=== PATIENT | male | born 1980 | race Caucasian/White ===

== ENCOUNTER 2016-11-03 06:17 | Emergency (ER) | payer OTHER ==
[~2016-11-03] VITALS: Ht 193 cm; Wt 107.0 kg
[~2016-11-03 06:17] MED LIST: FLEX5TAB PO; IBUP800 PO; Z.0.NO CURRENT MEDS
[2016-11-03 06:27] VITALS: BP 169/96; PULSE 116; RESP 18; TEMP 98.4; O2SAT 94
[2016-11-03] MEDS ORDERED: muscle relaxer (06:41)
--- NOTE | 2016-11-03 06:54 | PD ---
HPI Chief Complaint: Psychiatric Symptoms Time Seen by Provider: 06:51 Travel History International Travel<30 days: No Contact w/Intl Traveler<30days: No Traveled to known affect area: No History of Present Illness HPI Patient comes and under Veliz act by police for allegedly making suicidal statements to his girlfriend. Patient denies any suicidal or homicidal ideations. Patient states he is under a lot of stress right now and is uncertain what to do. Patient denies any history of suicide attempts. Denies any visual or auditory hallucinations. Does report consuming alcohol last night. Denies any other medical concerns. Denies any chest pain, shortness of breath, abdominal pain, fevers, or headache PFSH Past Medical History Musculoskeletal: Yes (back spasms) Tetanus Vaccination: < 5 Years Past Surgical History Surgical History: No Previous Surgery Other Surgery: Yes (LYMPHNODES REMOVED FROM L ARM PIT) Social History Alcohol Use: Yes Tobacco Use: Yes (occ) Substance Use: No Allergies-Medications (Allergen,Severity, Reaction): Coded Allergies: No Known Allergies (Verified , 11/03/16) Reported Meds & Prescriptions Reported Meds & Active Scripts Active Reported [muscle relaxer] Review of Systems Except as stated in HPI: all other systems reviewed are Neg Physical Exam Narrative GENERAL: Well-developed, well nourished, in no acute distress, and non-ill appearing. SKIN: Warm and dry. HEAD: Atraumatic. Normocephalic. EYES: Pupils equal and round. EOMI. No scleral icterus. No injection or drainage. ENT: No nasal bleeding or discharge. Mucous membranes pink and moist. NECK: Trachea midline. Supple. No nuclear rigidity. CARDIOVASCULAR: Regular rate and rhythm. No murmur appreciated. RESPIRATORY: No accessory muscle use. No respiratory distress. Clear to auscultation. Breath sounds equal bilaterally. MUSCULOSKELETAL: No obvious deformities. No clubbing. No cyanosis. No edema. Full range of motion. NEUROLOGICAL: Awake and alert. No obvious cranial nerve deficits. Motor grossly within normal limits. Normal speech. PSYCHIATRIC: Appropriate mood and affect; insight and judgment normal. Data Data Last Documented VS Vital Signs Date Time Temp Pulse Resp B/P Pulse Ox O2 Delivery O2 Flow Rate FiO2 11/03/16 06:37 118 20 11/03/16 06:27 98.4 169/96 94 Orders Complete Blood Count With Diff (11/03/16 06:38) Comprehensive Metabolic Panel (11/03/16 06:38) Drug Screen, Random Urine (11/03/16 06:38) Alcohol (Ethanol) (11/03/16 06:38) Psych Screen (11/03/16 06:38) Labs Laboratory Tests Test 11/03/16 06:45 White Blood Count 16.0 TH/MM3 Red Blood Count 4.90 MIL/MM3 Hemoglobin 14.4 GM/DL Hematocrit 42.5 % Mean Corpuscular Volume 86.9 FL Mean Corpuscular Hemoglobin 29.5 PG Mean Corpuscular Hemoglobin 33.9 % Concent Red Cell Distribution Width 13.1 % Platelet Count 310 TH/MM3 Mean Platelet Volume 8.0 FL Neutrophils (%) (Auto) 86.0 % Lymphocytes (%) (Auto) 8.8 % Monocytes (%) (Auto) 4.7 % Eosinophils (%) (Auto) 0.1 % Basophils (%) (Auto) 0.4 % Neutrophils # (Auto) 13.8 TH/MM3 Lymphocytes # (Auto) 1.4 TH/MM3 Monocytes # (Auto) 0.8 TH/MM3 Eosinophils # (Auto) 0.0 TH/MM3 Basophils # (Auto) 0.1 TH/MM3 CBC Comment DIFF FINAL Differential Comment Sodium Level 138 MEQ/L Potassium Level 3.7 MEQ/L Chloride Level 103 MEQ/L Carbon Dioxide Level 25.7 MEQ/L Anion Gap 9 MEQ/L Blood Urea Nitrogen 10 MG/DL Creatinine 1.12 MG/DL Estimat Glomerular Filtration 75 ML/MIN Rate Random Glucose 108 MG/DL Calcium Level 9.2 MG/DL Total Bilirubin 0.3 MG/DL Aspartate Amino Transf 21 U/L (AST/SGOT) Alanine Aminotransferase 41 U/L (ALT/SGPT) Alkaline Phosphatase 83 U/L Total Protein 8.5 GM/DL Albumin 4.3 GM/DL Urine Opiates Screen NEG Urine Barbiturates Screen NEG Urine Amphetamines Screen NEG Urine Benzodiazepines Screen NEG Urine Cocaine Screen POS Urine Cannabinoids Screen NEG Ethyl Alcohol Level 91 MG/DL [facility] Medical Decision Making Medical Screen Exam Complete: Yes Emergency Medical Condition: Yes Differential Diagnosis Homicidal, suicidal, substance induced mood disorder, alcohol intoxication, other Narrative Course Patient was seen and examined. Labs were obtained and reviewed. I suspect the patient's elevated white blood cell count and slightly elevated heart rate or a combination of stress and cocaine-induced. Patient medically cleared for further treatment and evaluation by psych. Final disposition per psych. Diagnosis Primary Impression: Substance abuse Additional Impression: Alcohol intoxication Qualified Code: F10.120 - Alcohol intoxication, uncomplicated Condition: Stable Mark Corona Nov 03, 2016 06:53
[2016-11-03 07:18] LABS: AUTOMATED NEUTROPHIL # 13.8 TH/MM3 (1.8-7.7); BASOPHIL # 0.1 TH/MM3 (0-0.2); BASOPHIL % 0.4 % (0.0-2.0); EOSINOPHIL % 0.1 % (0.0-4.0); HEMATOCRIT 42.5 % (39.0-51.0); HEMO FLAGS DIFF FINAL; LYMPH % 8.8 % (9.0-44.0); LYMPHOCYTE # 1.4 TH/MM3 (1.0-4.8); MEAN CELL VOLUME 86.9 FL (80.0-100.0); MEAN CORPUSCULAR HEMOGLOBIN 29.5 PG (27.0-34.0); MEAN CORPUSCULAR HGB CONC 33.9 % (32.0-36.0); MONO % 4.7 % (0.0-8.0); PLATELET COUNT 310 TH/MM3 (150-450); RED CELL DISTRIBUTION WIDTH 13.1 % (11.6-17.2)
[2016-11-03 07:25] LABS: AMPHETAMINE, URINE NEG (NEG); BARBITURATES, URINE NEG (NEG); COCAINE, URINE POS (NEG)
[2016-11-03 07:32] LABS: ALT (GPT) 41 U/L (12-78); ANION GAP 9 MEQ/L (5-15); AST (GOT) 21 U/L (15-37); BICARBONATE 25.7 MEQ/L (21.0-32.0); BLOOD UREA NITROGEN 10 MG/DL (7-18); CHLORIDE 103 MEQ/L (98-107); GLOMERULAR FILTRATION RATE 75 ML/MIN (>89); POTASSIUM 3.7 MEQ/L (3.5-5.1); SODIUM (NA) 138 MEQ/L (136-145)
[2016-11-03 07:34] LABS: ALKALINE PHOSPHATASE 83 U/L (45-117); TOTAL BILIRUBIN ADULT 0.3 MG/DL (0.2-1.0)
[2016-11-03 08:50] VITALS: BP 138/95; PULSE 108; RESP 18; TEMP 97.4; O2SAT 96
[2016-11-03 10:00] VITALS: BP 141/94; PULSE 95; RESP 18
[2016-11-03] MEDS ORDERED: CYCL1TAB29 PO (10:00)
[2016-11-03] MEDS ORDERED: PRED50 PO (10:01)
[2016-11-03] MEDS ORDERED: TRAM50TA PO (10:03)
--- NOTE | 2016-11-03 12:25 | PD.CONS ---
Provisional Diagnosis Admission Date [place] I. Substance induced mood disorder, alcohol intoxication, cocaine abuse History of Present Illness Service Psychiatry Consult Requested By EDMD Reason for Consult Jose Alfredo act Primary Care Physician No Primary Care Physician HPI Patient is a 36-year-old white male comes here under [place] [employer] dated 11/03/16 stating air contacted his girlfriend Angela roman and advised her he attempted to commit suicide. While on the phone he faced behind her and staged a suicide seen. Patient seen screened in the ED urine toxicology positive for cocaine blood alcohol level of 97. At the present time patient sitting quietly in his room on J pod nurse Carlita present throughout session stating that he went to a libertarian with his girlfriend to get into a fight she "went to her place and he did the following behaviors as mentioned above in and acting out gestures to get her attention. He denied any suicidal homicidal ideation intent or plan. E Varma at a libertarian that was drinking a cocaine being done though he minimizes his use of both alcohol and cocaine. Though he does acknowledge being somewhat of a risk taker and a thrill seeker acknowledges prior missed behaviors to the point where he is having legal issues related to a felony battery charge over his girlfriend that may remain out of been substance related also. Patient denies any prior psychiatric contact hospitalization psychotropic medications except he stated to his mother had of assessed as a young child for possible ADD. 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 He acknowledges caffeine use and energy drinks. In any event at this time patient does not meet Veliz criteria will lift Veliz act. The been no Rx by me. Will be strong recommendation for voluntary assessments for [facility] act outpatient substance abuse evaluation. Strong recommendation to both AA and NA. Strong recommendation for decreasing his caffeine intake is okay by psych for discharge at this time Review of Systems Except as stated in HPI: all other systems reviewed are Neg Past Family Social History Coded Allergies: No Known Allergies (Verified , 11/03/16) Per patient and [facility] [phone]. Past Medical History Denies medically cleared ED Reported Medications Tramadol 50 Mg Tab50 Mg PO Q4-6H PRN (PAIN) Ref 0 11/03/16 Prednisone 50 Mg Tab50 Mg PO DAILY Ref 0 11/03/16 Cyclobenzaprine (Flexeril)10 Mg Tab10 Mg PO BID PRN (SPASM) Ref 0 11/03/16 Discontinued Reported Medications [muscle relaxer] No Conflict Check 11/03/16 Miscellaneous (No Current Meds) Misc 08/10/10 Discontinued Scripts Ibuprofen (Motrin 800 Mg Tab)800 Mg [id number] Mg PO Q8H PRN (pain) #12 TAB Prov:LUIS ANGEL MCNALLY M.D. 07/26/13 Flexeril5 M1 5 Mg Tab5 Mg PO Q8 PRN (SPASM) #10 TAB Prov:LUIS ANGEL MCNALLY M.D. 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 2) Patient verbal able to access healthcare Physical Exam Please see ED examinations patient medically cleared Vital Signs Vital Signs Date Time Temp Pulse Resp B/P Pulse Ox O2 Delivery O2 Flow Rate FiO2 11/03/16 10:00 95 18 141/94 Room Air 11/03/16 08:50 97.4 96 Mental Status Examination Alert oriented white male appears stated age sitting calmly in his room cooperative with good eye contact Appearance Clean and neat Speech: Unremarkable Orientation: x3 Memory: Unremarkable Thought Process: Logical Thought Content: Unremarkable Hallucination Type: None Attention and Concentration: Good Suicidal Ideation: No Previous Suicide Attempts: No Homicidal Ideation: No Previous Homicide Attempts: No Insight: Poor Judgement: Poor Affect: Other (decreased range intensity) Mood: Euthymic (to somewhat restricted) Motor Activity: Normal gait Assessment & Plan Problem List: (1) Alcohol intoxication ICD Code: F10.129 (2) Cocaine abuse ICD Code: F14.10 (3) Substance induced mood disorder ICD Code: F19.94 Assessment & Plan Estimated LOS: days patient does not meet Veliz criteria will lift Veliz act strongly referral to NA/AA strongly referral for [facility] act outpatient substance abuse assessment strong recommendation decrease caffeine use Discharge Planning See above Request HC Surrog/Guard Advoc?: No Problem Qualifiers (1) Alcohol intoxication: Qualified Code: F10.120 - Alcohol intoxication, uncomplicated Maxwell Ivan MD Nov 03, 2016 12:25
== END 2016-11-03 13:00 | disposition home or self-care (01) ==
LOC: NEPA 06:17 → NEPJ 13:00
DX: F19.94 Other psychoactive substance use, unspecified with psychoactive substance-induced mood disorder (principal); F14.10 Cocaine abuse, uncomplicated; F10.129 Alcohol abuse with intoxication, unspecified; Z72.0 Tobacco use
CPT/HCPCS: 80053; 80307; 80320; 85025; 99283